=== PATIENT | female | born 1955 | race African-American/Black ===

== ENCOUNTER 2021-09-07 11:10 | Observation (INO) | payer OTHER ==
[2021-09-07] MEDS ORDERED: ACETAMINOPHEN 325 MG TABLET (FP) PO ONE (12:26)
[2021-09-07] MEDS ORDERED: ACETAMINOPHEN 325 MG TABLET (FP) ONE ×2 (12:51→22:50)
[2021-09-07 14:25] LABS: BASO % 0.5 % (0-2.0); HEMATOCRIT 37.8 % (32.4-45.2); HEMOGLOBIN 12.1 GM/dL (10.7-15.3); LYMPH % 10.1 % (8-40); MCH 25.3 pg (25.7-33.7); MEAN CELL VOLUME 79.2 fl (80-96); MEAN PLT VOLUME 11.2 fl (7.5-11.1); NEUT % 82.4 % (42.8-82.8); PLATELET COUNT 127 10^3/uL (134-434); RBC 4.77 M/mm3 (3.60-5.2); RDW 15.8 % (11.6-15.6); WHITE BLOOD COUNT 12.1 K/mm3 (4.0-10.0)
[2021-09-07 14:43] LABS: CALCIUM 10.6 mg/dL (8.5-10.1)
[2021-09-07 14:44] LABS: ALBUMIN 3.3 g/dl (3.4-5.0); BLOOD UREA NITROGEN 33.5 mg/dL (7-18)
[2021-09-07 14:46] LABS: CREATININE 1.8 mg/dL (0.55-1.3)
[2021-09-07 14:48] LABS: BILIRUBIN,TOTAL 0.6 mg/dL (0.2-1)
[2021-09-07 15:35] LABS: ERYTHROCYTE SEDIMENTATION RATE 70 mm/hr (0-30)
[2021-09-07] MEDS ORDERED: ACETAMINOPHEN 325 MG TABLET (FP) PO PRN (17:14)
[2021-09-07 19:23] LABS: EPI CELLS >36 /uL (0-25.1); HYALINE CASTS 11 /uL (0-3.1); URINE APPEARANCE TURBID; URINE BACTERIA 4868 /uL (0-1359); URINE BILIRUBIN NEGATIVE (NEGATIVE); URINE COLOR DK YELLOW; URINE GLUCOSE (UA) 1+ (NEGATIVE); URINE KETONE TRACE (NEGATIVE); URINE LEUK ESTERASE 1+ (NEGATIVE); URINE NITRITE NEGATIVE (NEGATIVE); URINE PROTEIN 1+ (NEGATIVE); URINE RBC 20 /uL (0-23.9); URINE WBC 386 /uL (0-25.8)
[2021-09-07 20:01] LABS: YEAST FEW (NEGATIVE)
[2021-09-07] MEDS: INSULIN SLIDING SCALE (NOVOLOG) 1 VIAL SQ SCH (23:04)
[2021-09-08] MEDS: INSULIN SLIDING SCALE (NOVOLOG) 1 VIAL SQ SCH ×4 (06:09→21:01)
[2021-09-08 06:35] VITALS: BMI 41.3
[2021-09-08 09:08] LABS: BASO % 0.7 % (0-2.0); EOS % 1.4 % (0-4.5); HEMATOCRIT 37.1 % (32.4-45.2); HEMOGLOBIN 11.7 GM/dL (10.7-15.3); LYMPH % 16.4 % (8-40); MCH 25.1 pg (25.7-33.7); MCHC 31.5 g/dl (32.0-36.0); MEAN CELL VOLUME 79.5 fl (80-96); MEAN PLT VOLUME 10.8 fl (7.5-11.1); MONO % 7.2 % (3.8-10.2); NEUT % 74.3 % (42.8-82.8); PLATELET COUNT 138 10^3/uL (134-434); RBC 4.67 M/mm3 (3.60-5.2); RDW 15.8 % (11.6-15.6); WHITE BLOOD COUNT 11.8 K/mm3 (4.0-10.0)
[2021-09-08 09:30] LABS: CALCIUM 10.3 mg/dL (8.5-10.1)
[2021-09-08 09:31] LABS: ALBUMIN 3.4 g/dl (3.4-5.0)
[2021-09-08 09:34] LABS: CREATININE 2.4 mg/dL (0.55-1.3)
[2021-09-08 09:35] LABS: BILIRUBIN,TOTAL 0.4 mg/dL (0.2-1); TOT PROT 7.8 g/dl (6.4-8.2)
[2021-09-08 09:43] LABS: BLOOD UREA NITROGEN 59.3 mg/dL (7-18)
[2021-09-08 14:08] LABS: SARS-CoV-2 NAA Not Detected (Not Detected)
[2021-09-08] MEDS: SODIUM CHLORIDE 0.45%/POT 20 MEQ/1,000 ML INFUS.BAG IV SCH (16:57)
[2021-09-08 19:09] LABS: EPI CELLS 33 /uL (0-25.1); HYALINE CASTS 0 /uL (0-3.1); URINE APPEARANCE CLEAR; URINE BACTERIA 436 /uL (0-1359); URINE BILIRUBIN NEGATIVE (NEGATIVE); URINE COLOR YELLOW; URINE GLUCOSE (UA) 1+ (NEGATIVE); URINE KETONE NEGATIVE (NEGATIVE); URINE LEUK ESTERASE NEGATIVE (NEGATIVE); URINE NITRITE NEGATIVE (NEGATIVE); URINE PROTEIN NEGATIVE (NEGATIVE); URINE RBC 3 /uL (0-23.9); URINE UROBILINOGEN 0.2 mg/dL (0.2-1.0); URINE WBC 25 /uL (0-25.8)
[2021-09-08] MEDS ORDERED: MELATONIN 5 MG TABLETS PO PRN (19:40)
[2021-09-09] MEDS: INSULIN SLIDING SCALE (NOVOLOG) 1 VIAL SQ SCH ×3 (06:39→17:04)
[2021-09-09] MEDS ORDERED: INSULIN (LEVEMIR) 100 UNITS/ML UNITS SQ SCH ×2 (07:00→22:00)
[2021-09-09 07:34] LABS: BASO % 0.7 % (0-2.0); EOS % 1.9 % (0-4.5); HEMATOCRIT 32.6 % (32.4-45.2); HEMOGLOBIN 10.7 GM/dL (10.7-15.3); LYMPH % 13.4 % (8-40); MCH 25.9 pg (25.7-33.7); MCHC 32.9 g/dl (32.0-36.0); MEAN CELL VOLUME 78.7 fl (80-96); MEAN PLT VOLUME 10.4 fl (7.5-11.1); MONO % 7.1 % (3.8-10.2); NEUT % 76.9 % (42.8-82.8); PLATELET COUNT 101 10^3/uL (134-434); RBC 4.14 M/mm3 (3.60-5.2); RDW 15.6 % (11.6-15.6); WHITE BLOOD COUNT 10.6 K/mm3 (4.0-10.0)
[2021-09-09 08:09] LABS: CALCIUM 9.5 mg/dL (8.5-10.1)
[2021-09-09 08:10] LABS: ALBUMIN 2.8 g/dl (3.4-5.0); BLOOD UREA NITROGEN 53.6 mg/dL (7-18)
[2021-09-09 08:13] LABS: CREATININE 1.7 mg/dL (0.55-1.3)
[2021-09-09 08:14] LABS: BILIRUBIN,TOTAL 0.8 mg/dL (0.2-1); TOT PROT 6.8 g/dl (6.4-8.2)
[2021-09-09 08:18] LABS: N-TERMINAL BNP 13.8 pg/ml (5-125)
[2021-09-09] MEDS: SODIUM CHLORIDE 0.45%/POT 20 MEQ/1,000 ML INFUS.BAG IV SCH (09:06)
[2021-09-09] MEDS ORDERED: SODIUM CHLORIDE 0.45%/POT 20 MEQ/1,000 ML INFUS.BAG IV SCH (10:54)
[2021-09-09 18:13] VITALS: BP 140/90; PULSE 115; TEMP 98.9
== END 2021-09-09 18:32 | disposition home health service (06) ==
LOC: JER 11:10 → JERBED 15:12 → J4S 09-08 06:03
PROVIDERS: ADMIT Family Medicine; ATTEND Family Medicine
PROC: 3E013VG Introduction of Insulin into Subcutaneous Tissue, Percutaneous Approach (ICD-10-PCS; principal; 2021-09-07)
PROC: 3E0337Z Introduction of Electrolytic and Water Balance Substance into Peripheral Vein, Percutaneous Approach (ICD-10-PCS; 2021-09-07)
DX: M17.12 Unilateral primary osteoarthritis, left knee (principal); R00.0 Tachycardia, unspecified; E66.01 Morbid (severe) obesity due to excess calories; Z68.41 Body mass index [BMI] 40.0-44.9, adult; R26.2 Difficulty in walking, not elsewhere classified; E11.9 Type 2 diabetes mellitus without complications; I10 Essential (primary) hypertension; M79.7 Fibromyalgia; R80.9 Proteinuria, unspecified; Z88.0 Allergy status to penicillin; G89.29 Other chronic pain; N17.9 Acute kidney failure, unspecified; Z91.018 Allergy to other foods; Z29.9 Encounter for prophylactic measures, unspecified
CPT/HCPCS: 36415; 71046-TC-FY; 72170-TC-FY; 73502-TC-LT-FY; 73560-TC-LT-FY; 74176-TC; 76775-TC; 80053; 80061; 81003; 82306; 82570; 82962; 83036; 83880; 83930; 83935; 83970; 84300; 84439; 84443; 85025; 85651; 86140; 87086; 93005; 93010; 93971-TC; 96360; 96361; 96372; 97116-GP; 97161-GP; 99285-25; C9803; G0378; J3480; U0003; U0005

== ENCOUNTER 2024-01-08 20:02 | Observation (INO) | payer OTHER ==
[2024-01-08 20:20] VITALS: BMI 45.6
[2024-01-08] MEDS ORDERED: KETOROLAC TROMETHAMINE 15 MG/ML VIAL ONE (21:03)
[2024-01-08] MEDS: KETOROLAC TROMETHAMINE 15 MG/ML VIAL IVPUSH ONE (21:23)
[2024-01-08 21:30] LABS: HEMATOCRIT 33.8 % (32.4-45.2); HEMOGLOBIN 10.5 GM/dL (10.7-15.3); LYMPH % 15.5 % (8-40); MCH 24.8 pg (25.7-33.7); MCHC 31.2 g/dl (32.0-36.0); MEAN CELL VOLUME 79.5 fl (80-96); MONO % 7.7 % (3.8-10.2); NEUT % 73.8 % (42.8-82.8); PLATELET COUNT 176 10^3/uL (134-434); RBC 4.25 M/mm3 (3.60-5.2); RDW 16.1 % (11.6-15.6); WHITE BLOOD COUNT 12.3 K/mm3 (4.0-10.0)
[2024-01-08 21:56] LABS: POTASSIUM 4.1 mmol/L (3.5-5.1)
[2024-01-08 21:58] LABS: ALBUMIN 3.1 g/dl (3.4-5.0); BLOOD UREA NITROGEN 36.8 mg/dL (7-18); CALCIUM 9.8 mg/dL (8.5-10.1)
[2024-01-08 22:01] LABS: CREATININE 1.8 mg/dL (0.55-1.3)
[2024-01-08 22:03] LABS: BILIRUBIN,TOTAL 0.5 mg/dL (0.2-1); TOT PROT 7.7 g/dl (6.4-8.2)
[2024-01-09] MEDS: LIDOCAINE PATCH REMOVAL MC SCH (01:01)
[2024-01-09] MEDS ORDERED: LIDOCAINE 5% TOPICAL PATCH ONE (01:35)
[2024-01-09] MEDS ORDERED: ACETAMINOPHEN INJECTION 100 ML IVPB ONE (01:35)
[2024-01-09] MEDS: LIDOCAINE 5% TOPICAL PATCH TP ONE (01:44)
[2024-01-09] MEDS: ACETAMINOPHEN 1000 MG/100 ML BAG IVPB PRN (01:44)
[2024-01-09] MEDS: INSULIN ASPART SLIDING SCALE (NOVOLOG) 1 VIAL SQ SCH (06:43)
[2024-01-09 08:41] LABS: EPI CELLS >36 /uL (0-25.1); HYALINE CASTS 1 /uL (0-3.1); PH,URINE 7.5 (5.0-8.0); URINE APPEARANCE CLOUDY; URINE BACTERIA >9,000 /uL (0-1359); URINE BILIRUBIN NEGATIVE (NEGATIVE); URINE COLOR YELLOW; URINE GLUCOSE (UA) NEGATIVE (NEGATIVE); URINE KETONE TRACE (NEGATIVE); URINE LEUK ESTERASE 1+ (NEGATIVE); URINE NITRITE NEGATIVE (NEGATIVE); URINE PROTEIN 2+ (NEGATIVE); URINE WBC 55 /uL (0-25.8)
[2024-01-09 08:46] LABS: URINE RBC 49 /uL (0-23.9)
[2024-01-09 08:46] LABS: HEMATOCRIT 29.3 % (32.4-45.2); HEMOGLOBIN 9.3 GM/dL (10.7-15.3); LYMPH % 17.3 % (8-40); MCH 25.6 pg (25.7-33.7); MCHC 31.9 g/dl (32.0-36.0); MEAN CELL VOLUME 80.1 fl (80-96); MEAN PLT VOLUME 9.4 fl (7.5-11.1); NEUT % 70.8 % (42.8-82.8); PLATELET COUNT 143 10^3/uL (134-434); RBC 3.65 M/mm3 (3.60-5.2); RDW 16.1 % (11.6-15.6); WHITE BLOOD COUNT 9.7 K/mm3 (4.0-10.0)
[2024-01-09 08:47] LABS: BASO % 0.5 % (0-2.0); EOS % 3.2 % (0-4.5); MONO % 8.2 % (3.8-10.2)
[2024-01-09 08:58] LABS: POTASSIUM 4.1 mmol/L (3.5-5.1)
[2024-01-09 09:01] LABS: CALCIUM 9.2 mg/dL (8.5-10.1)
[2024-01-09 09:04] LABS: BLOOD UREA NITROGEN 42.5 mg/dL (7-18)
[2024-01-09 09:06] LABS: CREATININE 1.9 mg/dL (0.55-1.3)
[2024-01-09] MEDS: amLODIPine BESYLATE 5 MG TABLET (FP) PO SCH (10:22)
[2024-01-09] MEDS: LIDOCAINE 5% TOPICAL PATCH TP SCH (10:36)
[2024-01-09] MEDS: LIDOCAINE PATCH REMOVAL MC ONE (10:38)
[2024-01-09] MEDS: MELATONIN 5 MG TABLETS PO PRN (23:02)
[2024-01-10] MEDS ORDERED: CYCLOBENZAPRINE HCL 10 MG TABLET (FP) PO PRN (08:23)
[2024-01-10] MEDS: GABAPENTIN 100 MG CAPSULE PO SCH (14:07)
[2024-01-10] MEDS: LORazepam 2 MG/ML SDV VIAL IVPUSH ONE (18:21)
[2024-01-10] MEDS: NITROFURANTOIN MONOHYD/M-CRYST 100 MG CAPSULE PO SCH (22:48)
[2024-01-11 07:54] LABS: POTASSIUM 4.5 mmol/L (3.5-5.1)
[2024-01-11 07:58] LABS: ALBUMIN 2.6 g/dl (3.4-5.0); BLOOD UREA NITROGEN 38.8 mg/dL (7-18); CALCIUM 9.3 mg/dL (8.5-10.1)
[2024-01-11 08:00] LABS: CREATININE 1.3 mg/dL (0.55-1.3)
[2024-01-11 08:02] LABS: BILIRUBIN,TOTAL 0.4 mg/dL (0.2-1); TOT PROT 6.6 g/dl (6.4-8.2)
[2024-01-11 14:55] VITALS: PULSE 71; TEMP 98.1
[2024-01-11 18:32] VITALS: BP 125/80; RESP 18
== END 2024-01-11 18:45 ==
LOC: JER 20:02 → JERBED 22:49 → J7W 01-09 03:03
PROVIDERS: ADMIT Internal Medicine; ATTEND Family Medicine
PROC: 3E033NZ Introduction of Analgesics, Hypnotics, Sedatives into Peripheral Vein, Percutaneous Approach (ICD-10-PCS; principal; 2024-01-08)
PROC: 3E0333Z Introduction of Anti-inflammatory into Peripheral Vein, Percutaneous Approach (ICD-10-PCS; 2024-01-08)
DX: M54.50 Low back pain, unspecified (principal); E66.01 Morbid (severe) obesity due to excess calories; I10 Essential (primary) hypertension; Z88.0 Allergy status to penicillin; R26.81 Unsteadiness on feet
CPT/HCPCS: 36415; 71045-TC-FY; 72148-TC; 80048; 80053; 81003; 82962; 83036; 85025; 93005; 93010; 96374; 96375; 97116-GP; 97162-GP; 99285-25; G0378; J0131

== ENCOUNTER 2025-02-11 22:24 | Inpatient (IN) | payer OTHER ==
[2025-02-11] MEDS ORDERED: ACETAMINOPHEN INJECTION 100 ML ONE (23:32)
[2025-02-12] MEDS: ACETAMINOPHEN 1000 MG/100 ML BAG IVPB ONE (00:09)
[2025-02-12 00:30] LABS: ABSOLUTE IMMATURE GRANULOCYTES 0.06 x10^3/uL (0.0-0.031); BASOPHILS # 0.05 x10^3/uL (0.01-0.08); EOSINOPHIL % 2.1 % (0.7-5.8); EOSINOPHILS # 0.26 x10^3/uL (0.04-0.36); MCHC 28.9 g/dl (32.2-35.5); MEAN CELL VOLUME 82.0 fl (79.4-94.8); MEAN PLT VOLUME 10.5 fl (9.4-12.3); MONOCYTE # 0.86 x10^3/uL (0.24-0.86); MONOCYTE % 6.8 % (4.7-12.5); RDW 17.4 % (12.4-16.4)
[2025-02-12 00:39] LABS: INR 1.08 (0.83-1.09); PROTHROMBIN TIME (PATIENT) 11.9 SEC (9.7-13.0)
[2025-02-12 00:42] LABS: ACTIVATED PTT 32.2 SECONDS (25.2-36.5)
[2025-02-12 01:02] LABS: GLUCOSE,RANDOM 138 mg/dL (74-106); TOT PROT 7.5 g/dl (6.4-8.2)
[2025-02-12 01:03] LABS: CO2 25 mmol/L (21-32)
[2025-02-12 01:05] LABS: ALK PHOS 113 U/L (40-150)
[2025-02-12 01:08] LABS: SGOT/AST 11 U/L (5-34)
[2025-02-12 01:23] LABS: CREATININE 1.10 mg/dL (0.55-1.3); SGPT/ALT < 6 U/L (0-55)
[2025-02-12 01:36] LABS: HCV DIAGNOSTIC IN-HOUSE W/RFLX NON-REACTIVE (NONREACTIVE); HIV INTERPRETATION NEGATIVE (NEGATIVE)
[2025-02-12 01:42] LABS: ERYTHROCYTE SEDIMENTATION RATE 99 mm/hr (0-30)
[2025-02-12] MEDS ORDERED: DOCUSATE SODIUM 100 MG CAPSULE (FP) PO PRN (03:53)
[2025-02-12 04:55] LABS: BF WBC & OTHER NUCLEATED CELLS 100 /mm3; BODY FLUID MONOCYTE 8 %
[2025-02-12 05:22] VITALS: BMI 52.2
[2025-02-12] MEDS ORDERED: ACETAMINOPHEN 1000 MG/100 ML BAG IVPB PRN (06:00)
[2025-02-12] MEDS: INSULIN ASPART SLIDING SCALE (NOVOLOG) 1 VIAL SQ SCH (06:04)
[2025-02-12] MEDS: LIDOCAINE 5% TOPICAL PATCH TP SCH (10:22)
[2025-02-12] MEDS: amLODIPine BESYLATE 5 MG TABLET (FP) PO SCH (10:22)
[2025-02-12] MEDS: GABAPENTIN 300 MG CAPSULE PO SCH (14:37)
[2025-02-12] MEDS: PRAMIPEXOLE DIHYDROCHLORIDE 0.125 MG TABLET PO SCH (14:37)
[2025-02-12] MEDS: LIDOCAINE PATCH REMOVAL MC SCH (22:38)
[2025-02-13 08:05] LABS: ABSOLUTE IMMATURE GRANULOCYTES 0.05 x10^3/uL (0.0-0.031); BASOPHILS # 0.06 x10^3/uL (0.01-0.08); EOSINOPHIL % 3.4 % (0.7-5.8); EOSINOPHILS # 0.37 x10^3/uL (0.04-0.36); MCHC 29.0 g/dl (32.2-35.5); MEAN CELL VOLUME 81.9 fl (79.4-94.8); MEAN PLT VOLUME 10.8 fl (9.4-12.3); MONOCYTE # 0.85 x10^3/uL (0.24-0.86); MONOCYTE % 7.8 % (4.7-12.5); RDW 17.5 % (12.4-16.4)
[2025-02-13 09:08] LABS: GLUCOSE,RANDOM 127.0 mg/dL (74-106)
[2025-02-13 09:10] LABS: CO2 25.0 mmol/L (21-32)
[2025-02-13 09:14] LABS: CREATININE 1.4 mg/dL (0.55-1.3)
[2025-02-13] MEDS ORDERED: ENOXAPARIN NA (PORCINE) 40 MG/0.4 ML DISP.SYRIN SQ SCH (10:00)
[2025-02-13 18:40] VITALS: BP 131/76; PULSE 61; RESP 20; TEMP 97.7
== END 2025-02-13 19:42 | disposition home health service (06) | DRG 554 ==
LOC: JER 22:24 → JERBED 02-12 01:16 → J7W 02-12 04:46
PROVIDERS: ADMIT Family Medicine; ATTEND Family Medicine
PROC: 0S9C3ZZ Drainage of Right Knee Joint, Percutaneous Approach (ICD-10-PCS; principal; 2025-02-12)
DX: M17.11 Unilateral primary osteoarthritis, right knee (principal); Z68.43 Body mass index [BMI] 50.0-59.9, adult; I10 Essential (primary) hypertension; E11.9 Type 2 diabetes mellitus without complications; K21.9 Gastro-esophageal reflux disease without esophagitis; E66.01 Morbid (severe) obesity due to excess calories; R26.81 Unsteadiness on feet; M25.461 Effusion, right knee
CPT/HCPCS: 20606; 36415; 71045-TC-FY; 72170-TC-FY; 73562-TC-RT-FY; 80048; 80053; 82945; 82962; 83690; 83735; 84100; 84484; 84550; 84560; 85025; 85610; 85651; 85730; 86140; 86803; 86850; 86900; 86901; 87040; 87070; 87075; 87205; 87389; 87637-QW; 89060; 93005; 93010; 93971-TC-RT; 97162-GP; 99285-25